=== PATIENT | female | born 1950 | race African-American/Black ===

== ENCOUNTER → 2016-06-19 | Outpatient (CLI) | payer MEDICARE, OTHER ==
--- NOTE | 2016-06-19 10:24 | XR ---
Cervical spine HISTORY: Pain 5 views of the cervical spine correlated to prior cervical spine dated 15 January 2007 Biapical pleural thickening is present. There may be a spinal curvature. Multilevel facet arthropathy changes are present. Foraminal encroachment is present at C4-5 due to uncovertebral joint hypertroph y facet arthropathy bilaterally. Spondylosis is present at C4-5, C5-6 and C6-7, there is associated l oss of disc height. Retrolisthesis grade 1 C2-3, C3-4 and C4-5, anterolisthesis grade 1 C7-T1. Bone m ineralization is reduced. Vertebral body height is maintained. The patient is edentulous. IMPRESSION: Degenerative disc disease and facet arthropathy. Osteopenia. Additional findings above.
== END | disposition home or self-care (01) ==
LOC: RADXRMAIN 08:43
PROVIDERS: ATTEND Physician Assistant
DX: M46.92 Unspecified inflammatory spondylopathy, cervical region (principal); M50.30 Other cervical disc degeneration, unspecified cervical region; M85.88 Other specified disorders of bone density and structure, other site
CPT/HCPCS: 72050

== ENCOUNTER → 2016-08-01 | Outpatient (CLI) | payer MEDICARE, OTHER | END | disposition home or self-care (01) | LOC: LABWHC1 17:11 | PROVIDERS: ATTEND Internal Medicine Clinical Cardiac Electrophysiology | DX: I10 Essential (primary) hypertension (principal) | CPT/HCPCS: 36415; 82533 ==

== ENCOUNTER 2017-07-27 14:01 | Emergency (ER) | payer MEDICARE ==
--- NOTE | 2017-07-27 15:19 | ED ---
General Adult HPI - General Chief complaint: Recheck/Abnormal Lab/Rx Stated complaint: Medication eval Time Seen by Provider: 07/27/17 14:44 Source: patient, RN notes reviewed, old records reviewed Mode of arrival: ambulatory Limitations: no limitations - History of Present Illness Initial comments: Chief complaint and history of present illness is a 66-year-old female who is coming emergency room because of complaining of some increased stress due to multiple family illnesses and deficits. The patient reports that her previous physician had her take Ativan 1 mg twice a day and Elavil at night. When she changed over to a new physician who took her off her medications including Ativan, Elavil and cholesterol medications. She's been off several medications for 2 months Ativan off for one month. This morning she did take one half of her sister's pill. Patient has an appointment to follow-up with another physician for reevaluation of medications in 2 weeks. She states she been off Ativan for one solid month. States she is depressed but not suicidal. - Related Data Previous Rx's Medication Instructions Recorded LORazepam [Ativan] 1 mg PO DAILY #10 tablet 07/27/17 Allergies Allergy/AdvReac Type Severity Reaction Status Date / Time clarithromycin [From Biaxin] Allergy Rash/Hives/ Verified 07/27/17 14:50 SOB Iodinated Contrast- Oral and Allergy Rash/Hives Verified 07/27/17 14:50 IV Dye [Iodinated Contrast Media - IV Dye] Penicillins Allergy Rash/Hives Verified 07/27/17 14:50 tetracycline [Tetracycline] Allergy Rash/Hives Verified 07/27/17 14:50 prochlorperazine AdvReac Dyspnea Verified 07/27/17 14:50 [From Compazine] Review of Systems ROS Statement: Those systems with pertinent positive or pertinent negative responses have been documented in the HPI. Review of systems. No headache or visual acuity changes no chest pain shortness of breath GI/ problems. She has chronic musculoskeletal discomfort from arthritis. Depressed over situations regarding his or her family's health and multiple tests including her own 's 2 years ago. Denies any injuries. Scheduled to see a new physician in several weeks. Also has not been able to obtain an appointment through [facility] or [facility]. First Appointment would be over 6 months away. All systems are reviewed. Past medical problems significant for COPD and she still smoke strongly encouraged to stop. Also hypothyroidism. Surgeries include cardiac ablation for SVT and has not had any difficulty since then. Partial hysterectomy, cholecystectomy, bilateral knee replacements for arthritis. Patient's ALLERGIES include clarithromycin, iodine oral and IV, penicillin, tetracycline and prochlorperazine patient continues to smoke 6 cigarettes per day encouraged to stop entirely. Denies alcohol use. ROS Other: All systems not noted in ROS Statement are negative. Past Medical History Past Medical History: COPD, Thyroid Disorder History of Any Multi-Drug Resistant Organisms: None Reported Past Surgical History: Cardiac Ablation, Cholecystectomy, Hysterectomy, Orthopedic Surgery Additional Past Surgical History / Comment(s): bilateral knee arthroscopy Past Psychological History: No Psychological Hx Reported Smoking Status: Current every day smoker Past Alcohol Use History: None Reported Past Drug Use History: None Reported General Exam - General Exam Comments Initial Comments: General: The patient is awake and alert, is depressed and upset that she's not been able take Ativan for over one month. Vital signs temperature 98.0 pulse 102 respiratory rate 20 pulse ox on percent room air blood pressure 112/71 Eye: Pupils are equal, round and reactive to light, extra-ocular movements are intact ; there is normal conjunctiva bilaterally. No signs of icterus. Patient has left eye cataract removal. Ears, nose, mouth and throat: There are moist mucous membranes and no oral lesions. Neck: The neck is supple, there is no tenderness. Cardiovascular: There is a regular rate and rhythm. No murmur, rub or gallop is appreciated. Respiratory: Lungs are clear to auscultation, respirations are non-labored, breath sounds are equal. No wheezes, stridor, rales, or rhonchi. Gastrointestinal: Soft, non-distended, non-tender abdomen without masses or organomegaly noted. There is no rebound or guarding present. No CVA tenderness. Bowel sounds are unremarkable. Back: There is no tenderness to palpation in the midline. There is no obvious deformity. No rashes noted. Musculoskeletal: Normal ROM, no tenderness, There is no pedal edema. There is no calf tenderness or swelling. Sensation intact. Pulses equal bilaterally 2+. Complains of chronic lower extremities discomfort. Has had bilateral knees replaced because of arthritis. Neurological: CN II-XII intact, There are no obvious motor or sensory deficits. Coordination appears grossly intact. Speech is normal. No focal or lateralizing findings. Skin: Skin is warm and dry and no rashes or lesions are noted. Psychiatric: Cooperative, flat affect, depressed, denies suicidal thoughts or intentions. Has been off Ativan for 1 month. Family problems and illnesses. Limitations: no limitations Course Vital Signs 07/27/17 14:03 Temperature 98.0 F Pulse Rate 102 H Respiratory 20 Rate Blood Pressure 112/71 O2 Sat by Pulse 100 Oximetry Medical Decision Making - Medical Decision Making Medical decision making; is a 66-year-old female here for complaint of being depressed because she can't get the Ativan which she normally took twice a day up to a month ago. She did get one half an Ativan from her sister this morning. The patient is not suicidal. Psychiatry will discuss her complaints. She does have an appointment to follow-up with a new family doctor soon but has not been able to get into any mental health programs. Patient was evaluated by the psychiatric nurse she spoke with the psychiatrist. Dr. Don suggests giving the patient Ativan 1 mg per day for the when necessary dose dispensed 10. Also suggest that she take melatonin 5 mg over-the -counter at night. And she is to be discharged to her daughter's home and she is receiving outpatient referrals for community mental health. - Lab Data Lab Results 07/27/17 Range/Units 15:45 Urine Opiates Screen Not Detected (NotDetected) Ur Oxycodone Screen Not Detected (NotDetected) Urine Methadone Screen Not Detected (NotDetected) Ur Propoxyphene Screen Not Detected (NotDetected) Ur Barbiturates Screen Not Detected (NotDetected) U Tricyclic Antidepress Not Detected (NotDetected) Ur Phencyclidine Scrn Not Detected (NotDetected) Ur Amphetamines Screen Not Detected (NotDetected) U Methamphetamines Scrn Not Detected (NotDetected) U Benzodiazepines Scrn Detected H (NotDetected) Urine Cocaine Screen Not Detected (NotDetected) U Marijuana (THC) Screen Not Detected (NotDetected) Disposition Clinical Impression: Depression Disposition: HOME SELF-CARE Condition: Fair Instructions: Depression (ED) Additional Instructions: Follow-up with your family doctor, follow up with outpatient referrals. Take Ativan 1 mg daily. By melatonin 5 mg [id number] to be taken at night to aid in sleep. Return emergency room as needed Prescriptions: LORazepam [Ativan] 1 mg PO DAILY #10 tablet Referrals: Bridgett Falk MD [Primary Care Provider] - 1-2 days Time of Disposition: 18:23
[2017-07-27 16:04] LABS: Amphetamine Screen,Urine Not Detected (NotDetected); Barbiturate Screen,Urine Not Detected (NotDetected); Benzodiazepines Screen,Urine Detected (NotDetected); Cocaine Screen,Urine Not Detected (NotDetected); Methadone Screen, Urine Not Detected (NotDetected); Opiate Screen,Urine Not Detected (NotDetected); Oxycodone Screen, Urine Not Detected (NotDetected); Phencyclidine Screen,Urine Not Detected (NotDetected); Tricyclic Antidepressant,Urine Not Detected (NotDetected); Urn Cannabinoid Scrn Not Detected (NotDetected)
[2017-07-27 18:35] VITALS: BP 117/82; PULSE 82; RESP 18; TEMP 98.2
== END 2017-07-27 18:35 | disposition home or self-care (01) ==
LOC: EC 14:01
DX: F32.9 Major depressive disorder, single episode, unspecified (principal); F43.9 Reaction to severe stress, unspecified; F17.200 Nicotine dependence, unspecified, uncomplicated; Z88.1 Allergy status to other antibiotic agents; Z88.0 Allergy status to penicillin; Z91.041 Radiographic dye allergy status; Z88.8 Allergy status to other drugs, medicaments and biological substances
CPT/HCPCS: 80306; 82075; 99284

== ENCOUNTER → 2018-08-19 | Outpatient (CLI) | payer MEDICARE | END | disposition home or self-care (01) | LOC: LABWHC1 12:37 | PROVIDERS: ATTEND Ophthalmology | DX: M31.6 Other giant cell arteritis (principal) | CPT/HCPCS: 36415; 85652; 86140 ==

== ENCOUNTER → 2022-08-08 | Outpatient (CLI) | payer MEDICARE ==
--- NOTE | 2022-08-08 11:06 | CTL ---
EXAMINATION TYPE: CT Low Dose Lung DATE OF EXAM ORDERED: 08/08/2022 HISTORY: . Lung cancer screening CT DLP: 59.[address] CTDI: 1.53 mGy Automated exposure control for dose reduction was used. SCREENING VISIT: COMPARISON: 08/04/2012 TECHNIQUE: Low dose computed tomography scan was performed through the chest at 1 mm thick sections a nd reconstructed images in multiple planes at 1 mm and [address] DIAGNOSTIC QUALITY: Satisfactory FINDINGS: There is mild diffuse emphysematous changes and there is areas of peripheral lung consolidation the r ight upper lobe with pleural-based thickening. There is a marked biapical pleural thickening with a f ocal area of calcifications seen involving the right lung apex. There is a subpleural nodule noted on axial image 81 measuring 6 mm. No additional sizable pulmonary nodules. No focal pneumonia or pleural effusion. No pneumothorax. There is central moderate bronchiectasis. Mild interlobular septal thickening can be associated with mild chronic interstitial lung disease. Within the liver there is a large hepatic lesion near the dome of the liver measuring 1.7 cm and 10 H ounsfield units. Post cholecystectomy changes are seen and there is a scoliosis of the spine. Tiny focus of hyperdensity involving the upper pole the left kidney likely represents a Bosniak 2 cla ssification hemorrhagic cyst but is too small to characterize measuring less than a centimeter and co uld be followed on a short-term basis. Heart size is normal. Aorta of normal caliber. There is mild atherosclerotic changes. No significant coronary artery calcification. No definite pathologic adenopathy by noncontrast technique. There is f luid attenuation along the right cardiophrenic angle measuring 3.2 cm similar to the prior study of 2 013 and therefore likely represents a spring water or pericardial cyst. IMPRESSION: 1. Diffuse mild COPD with moderate central bronchiectasis. 2. There is a 6 mm subpleural nodule right upper lobe. 3. There is peripheral consolidation within the right upper lobe axial image 91 which is felt to be m ost likely on the basis of chronic inflammatory or atelectatic changes. There is fairly extensive yohan pical pleural-based thickening mildly progressed from prior exam. 4. Subcentimeter hyperdensity within the upper pole left kidney is too small to characterize. Most li oswaldo represents a Bosniak classification 2 hemorrhagic or high proteinaceous cyst. 5. There is fluid attenuation along the right cardiophrenic angle measuring 3.2 cm similar to the miladis or study of 2013 and therefore likely represents a spring water or pericardial cyst. CT LUNG RAD AND CT CHEST RECOMMENDATION: Lung-Rad 3 Probably Benign: 6 month follow-up LDCT.
== END | disposition home or self-care (01) ==
LOC: RADCTMAIN 10:00
PROVIDERS: ATTEND Internal Medicine Critical Care Medicine
DX: Z12.2 Encounter for screening for malignant neoplasm of respiratory organs (principal); J44.9 Chronic obstructive pulmonary disease, unspecified; N28.89 Other specified disorders of kidney and ureter; F17.210 Nicotine dependence, cigarettes, uncomplicated; R91.1 Solitary pulmonary nodule
CPT/HCPCS: 71271

== ENCOUNTER → 2023-06-14 | Outpatient (CLI) | payer MEDICARE ==
[2023-06-14 09:15] LABS: African American GFR (CKD) >90 (>60 ml/min/1.73 sqM); Blood Urea Nitrogen 11 mg/dL (7-17); Non-African American GFR(CKD) >90 (>60 ml/min/1.73 sqM)
--- NOTE | 2023-06-14 10:22 | CT ---
EXAMINATION TYPE: CT chest w con DATE OF EXAM: 06/14/2023 COMPARISON: 08/04/2012, low-dose CT chest 08/08/2022 HISTORY: COPD CT DLP: 125.8 mGycm, Automated exposure control for dose reduction was used. CONTRAST: Performed injected with 100 mL of Isovue 300. TECHNIQUE: Axial images were obtained at 5 mm thick sections. Reconstructed images are reviewed on [employer] computer in the coronal plane. FINDINGS: Portion of the thyroid visualized is normal. Bilateral posterior apical scarring appears to be present. This was present previously and appears st able. There is a 0.6 cm nodule peripheral right upper lung field present previously. Series 4 image 19 There is some bronchiectasis evident in the upper lung waggoner no suspicious infiltrates or masses are otherwise evident. No enlarged mediastinal or hilar adenopathy is evident. The ascending aorta diameter at the level o f the main pulmonary artery is 2.4 cm. The main pulmonary artery diameter at the bifurcation is 1.[address] sections are obtained through the upper abdomen. There is a 2.7 cm cyst within the medial left lobe liver. IMPRESSION: 1. Bilateral apical scarring 2. Stable peripheral pleural-based nodule right upper lateral lung field. 3. Bronchiectasis upper lung waggoner.
== END | disposition home or self-care (01) ==
LOC: RADCTMAIN 08:28
PROVIDERS: ATTEND Internal Medicine Critical Care Medicine
DX: J47.9 Bronchiectasis, uncomplicated (principal); J94.8 Other specified pleural conditions; J98.4 Other disorders of lung; J44.9 Chronic obstructive pulmonary disease, unspecified
CPT/HCPCS: 82565; 84520; 71260; 36415; Q9967

== ENCOUNTER 2024-01-29 21:18 | Emergency (ER) | payer MEDICARE ==
[2024-01-29 22:07] VITALS: TEMP 97.8
[2024-01-29] MEDS: ASPIRIN 81 MG PO STA (22:36)
[2024-01-29] MEDS: HYDROcodone/APAP 7.5-325MG 1 EACH TAB PO ONE (22:38)
[2024-01-29] MEDS: KETOROLAC 15 MG/ML 1 ML VIAL IVP STA (23:10)
[2024-01-29] MEDS: SODIUM CHLORIDE 0.9% 500 ML 500 ML IV STA (23:11)
[2024-01-29 23:38] LABS: Basophils % (A) 0 %; Eosinophils # (A) 0.1 k/uL (0-0.7); Eosinophils % (A) 2 %; HCT 37.3 % (34.0-46.0); Lymphocytes # (A) 1.6 k/uL (1.0-4.8); Lymphocytes % (A) 26 %; MCH 30.3 pg (25.0-35.0); MCHC 32.2 g/dL (31.0-37.0); MCV 94.1 fL (80.0-100.0); Mean Platelet Volume 8.2; Monocytes # (A) 0.4 k/uL (0-1.0); Monocytes % (A) 6 %; Neutrophils # (A) 3.8 k/uL (1.3-7.7); Neutrophils % (A) 64 %; Platelet Count 226 k/uL (150-450); RBC 3.97 m/uL (3.80-5.40); RDW 13.5 % (11.5-15.5)
[2024-01-29 23:43] LABS: INR 0.9 (<1.2); Prothrombin Time 10.3 sec (10.0-12.5)
[2024-01-30 00:14] LABS: ALT 12 U/L (4-34); African American GFR (CKD) >90 (>60 ml/min/1.73 sqM); Albumin 4.2 g/dL (3.5-5.0); Anion Gap 5 mmol/L; Blood Urea Nitrogen 11 mg/dL (7-17); Calcium 9.4 mg/dL (8.4-10.2); Carbon Dioxide 25 mmol/L (22-30); Chloride 106 mmol/L (98-107); Glucose 93 mg/dL (74-99); Non-African American GFR(CKD) 86 (>60 ml/min/1.73 sqM); Sodium 136 mmol/L (137-145); Total Bilirubin 0.7 mg/dL (0.2-1.3); Total Protein 6.9 g/dL (6.3-8.2)
[2024-01-30 00:18] LABS: AST 31 U/L (14-36); Alkaline Phosphatase 63 U/L (38-126); Magnesium 1.9 mg/dL (1.6-2.3); Potassium 4.5 mmol/L (3.5-5.1)
--- NOTE | 2024-01-30 00:54 | ED ---
General Adult HPI - General Chief complaint: Extremity Injury, Upper Stated complaint: Chest Pain Time Seen by Provider: 01/29/24 22:14 Source: patient Mode of arrival: ambulatory Limitations: no limitations - History of Present Illness Initial comments: 73-year-old female presenting with chief complaint of left shoulder pain. Patient states that several years ago she did injure her shoulder and having coming in she does have a flareup of the pain. The pain does travel from the shoulder to the superiormost aspect of the chest. Pain is worse with range of motion and with palpation of the area. She had this pain yesterday and it persisted into today. Laying flat also makes the pain worse. She is having no difficulty breathing. No fevers or chills. No new injury. No numbness tingling or weakness. - Related Data Previous Rx's Medication Instructions Recorded LORazepam [Ativan] 1 mg PO DAILY #10 tablet 07/27/17 Allergies Allergy/AdvReac Type Severity Reaction Status Date / Time clarithromycin [From Biaxin] Allergy Rash/Hives/ Verified 01/29/24 22:01 SOB Iodinated Contrast Media Allergy Rash/Hives Verified 01/29/24 22:01 [Iodinated Contrast Media - IV Dye] Penicillins Allergy Rash/Hives Verified 01/29/24 22:01 tetracycline [Tetracycline] Allergy Rash/Hives Verified 01/29/24 22:01 prochlorperazine AdvReac Dyspnea Verified 01/29/24 22:01 [From Compazine] Review of Systems ROS Statement: Those systems with pertinent positive or pertinent negative responses have been documented in the HPI. ROS Other: All systems not noted in ROS Statement are negative. Past Medical History Past Medical History: COPD, Hyperlipidemia, Thyroid Disorder History of Any Multi-Drug Resistant Organisms: None Reported Past Surgical History: Cardiac Ablation, Cholecystectomy, Hysterectomy, Orthopedic Surgery Additional Past Surgical History / Comment(s): bilateral knee arthroscopy Past Psychological History: No Psychological Hx Reported Smoking Status: Current every day smoker Past Alcohol Use History: None Reported Past Drug Use History: None Reported General Exam Limitations: no limitations General appearance: alert, in no apparent distress Head exam: Present: atraumatic, normocephalic, normal inspection Eye exam: Present: normal appearance. Absent: EOMI Neck exam: Present: normal inspection. Absent: meningismus Respiratory exam: Present: normal lung sounds bilaterally, chest wall tenderness. Absent: respiratory distress, wheezes, rales, rhonchi, stridor Cardiovascular Exam: Present: regular rate, normal rhythm, normal heart sounds. Absent: systolic murmur, diastolic murmur, rubs, gallop, clicks Left Shoulder Exam: Present: normal inspection, full ROM, tenderness Neurological exam: Present: alert, oriented X3 Psychiatric exam: Present: normal affect, normal mood Skin exam: Present: warm, dry Course Vital Signs 01/29/24 01/30/24 22:01 02:29 Temperature 97.8 F Pulse Rate 103 H 82 Respiratory 19 18 Rate Blood Pressure 133/69 104/68 O2 Sat by Pulse 99 99 Oximetry Medical Decision Making - Medical Decision Making Was pt. sent in by a medical professional or institution ([facility], [employer], urgent care, hospital, or snf...) When possible be specific @ -No Did you speak to anyone other than the patient for history (EMS, parent, family, police, friend...)? What history was obtained from this source @ -No Did you review nursing and triage notes (agree or disagree)? Why? @ -I reviewed and agree with nursing and triage notes Were old charts reviewed (outside hosp., previous admission, EMS record, old EKG, old radiological studies, urgent care reports/EKG's, snf records)? Report findings @ -No old charts were reviewed Differential Diagnosis (chest pain, altered mental status, abdominal pain women, abdominal pain men, vaginal bleeding, weakness, fever, dyspnea, syncope, h eadache, dizziness, GI bleed, back pain, seizure, CVA, palpatations, mental health, musculoskeletal)? @ -Differential Musculoskeletal Muscular strain, contusion, ligament sprain, fracture, arthritis, septic arthritis, bursitis, cellulitis, muscle spasm, nerve compression, DVT, arterial occlusion, herpes zoster, electrolyte abnormality, tumor.... This is not meant to be in all inclusive list EKG interpreted by me (3pts min.). @ -EKG shows sinus rhythm ventricular rate 82. IA interval 167. QRS 80. QT 365. QTc 404. Normal axis. X-rays interpreted by me (1pt min.). @ -Chest x-ray shows no acute process. shoulder x-ray shows no acute fracture or subluxation CT interpreted by me (1pt min.). @ -None done U/S interpreted by me (1pt. min.). @ -None done What testing was considered but not performed or refused? (CT, X-rays, U/S, labs)? Why? @ -None What meds were considered but not given or refused? Why? @ -None Did you discuss the management of the patient with other professionals (professionals i.e. DrCarol, PA, [employer], lab, RT, psych nurse, social economist, linux admin, teacher, chief security officer, pillowcase maker)? Give summary @ -No Was smoking cessation discussed for >3mins.? @ -No Was critical care preformed (if so, how long)? @ -No Were there social determinants of health that impacted care today? How? (Homelessness, low income, unemployed, alcoholism, drug addiction, transportation, low edu. Level, literacy, decrease access to med. care, penitentiary, rehab)? @ -No Was there de-escalation of care discussed even if they declined (Discuss DNR or withdrawal of care, Hospice)? DNR status @ -No What co-morbidities impacted this encounter? (DM, HTN, Smoking, COPD, CAD, Cancer, CVA, ARF, Chemo, Hep., AIDS, mental health diagnosis, sleep apnea, morbid obesity)? @ -None Was patient admitted / discharged? Hospital course, mention meds given and route, prescriptions, significant lab abnormalities, going to OR and other pertinent info. @ -73-year-old female presenting with chief complaint of left shoulder pain. There is some radiation to the superiormost aspect of the chest. Her pain is reproducible on palpation and worse with range of motion. History and physical examination are conducted. Lab work shows no leukocytosis or anemia. Negative troponin. Negative x-rays of the chest and shoulder. EKG shows sinus rhythm with no ischemic changes. Pain is likely musculoskeletal in nature. Patient is requesting discharge home. She reports improvement after medication given here. Educated on today's findings and discharged. Follow-up with PCP. Report back to ER with any new or worsening symptoms. Discussed return parameters and answered all questions. Patient conveyed verbal understanding and agreed to the plan. I discussed this case in detail with my attending Dr. García Undiagnosed new problem with uncertain prognosis? @ -No Drug Therapy requiring intensive monitoring for toxicity (Heparin, Nitro, Insulin, Cardizem)? @ -No Were any procedures done? @ -No Diagnosis/symptom? @ -Shoulder pain Acute, or Chronic, or Acute on Chronic? @ -Acute Uncomplicated (without systemic symptoms) or Complicated (systemic symptoms)? @ -Uncomplicated Side effects of treatment? @ -No Exacerbation, Progression, or Severe Exacerbation? @ -No Poses a threat to life or bodily function? How? (Chest pain, [place], [place], pneumonia, PE, COPD, DKA, ARF, appy, cholecystitis, CVA, Diverticulitis, Homicidal, Suicidal, threat to staff... and all critical care pts) @ -Unlikely - Lab Data Result diagrams: 01/29/24 23:04 01/29/24 23:04 Lab Results 01/29/24 01/29/24 01/29/24 Range/Units 23:04 23:04 23:04 WBC 6.0 (3.8-10.6) k/uL RBC 3.97 (3.80-5.40) m/uL Hgb 12.0 (11.4-16.0) gm/dL Hct 37.3 (34.0-46.0) % MCV 94.1 (80.0-100.0) fL MCH 30.3 (25.0-35.0) pg MCHC 32.2 (31.0-37.0) g/dL RDW 13.5 (11.5-15.5) % Plt Count 226 (150-450) k/uL MPV 8.2 Neutrophils % 64 % Lymphocytes % 26 % Monocytes % 6 % Eosinophils % 2 % Basophils % 0 % Neutrophils # 3.8 (1.3-7.7) k/uL Lymphocytes # 1.6 (1.0-4.8) k/uL Monocytes # 0.4 (0-1.0) k/uL Eosinophils # 0.1 (0-0.7) k/uL Basophils # 0.0 (0-0.2) k/uL PT 10.3 (10.0-12.5) sec INR 0.9 (<1.2) APTT 31.0 H (22.0-30.0) sec Sodium 136 L (137-145) mmol/L Potassium 4.5 (3.5-5.1) mmol/L Chloride 106 (98-107) mmol/L Carbon Dioxide 25 (22-30) mmol/L Anion Gap 5 mmol/L BUN 11 (7-17) mg/dL Creatinine 0.71 (0.52-1.04) mg/dL Est GFR (CKD-EPI)AfAm >90 (>60 ml/min/1.73 sqM) Est GFR (CKD-EPI)NonAf 86 (>60 ml/min/1.73 sqM) Glucose 93 (74-99) mg/dL Calcium 9.4 (8.4-10.2) mg/dL Magnesium 1.9 (1.6-2.3) mg/dL Total Bilirubin 0.7 (0.2-1.3) mg/dL AST 31 (14-36) U/L ALT 12 (4-34) U/L Alkaline Phosphatase 63 (38-126) U/L Troponin I (0.000-0.034) ng/mL Total Protein 6.9 (6.3-8.2) g/dL Albumin 4.2 (3.5-5.0) g/dL 01/29/24 Range/Units 23:04 WBC (3.8-10.6) k/uL RBC (3.80-5.40) m/uL Hgb (11.4-16.0) gm/dL Hct (34.0-46.0) % MCV (80.0-100.0) fL MCH (25.0-35.0) pg MCHC (31.0-37.0) g/dL RDW (11.5-15.5) % Plt Count (150-450) k/uL MPV Neutrophils % % Lymphocytes % % Monocytes % % Eosinophils % % Basophils % % Neutrophils # (1.3-7.7) k/uL Lymphocytes # (1.0-4.8) k/uL Monocytes # (0-1.0) k/uL Eosinophils # (0-0.7) k/uL Basophils # (0-0.2) k/uL PT (10.0-12.5) sec INR (<1.2) APTT (22.0-30.0) sec Sodium (137-145) mmol/L Potassium (3.5-5.1) mmol/L Chloride (98-107) mmol/L Carbon Dioxide (22-30) mmol/L Anion Gap mmol/L BUN (7-17) mg/dL Creatinine (0.52-1.04) mg/dL Est GFR (CKD-EPI)AfAm (>60 ml/min/1.73 sqM) Est GFR (CKD-EPI)NonAf (>60 ml/min/1.73 sqM) Glucose (74-99) mg/dL Calcium (8.4-10.2) mg/dL Magnesium (1.6-2.3) mg/dL Total Bilirubin (0.2-1.3) mg/dL AST (14-36) U/L ALT (4-34) U/L Alkaline Phosphatase (38-126) U/L Troponin I <0.012 (0.000-0.034) ng/mL Total Protein (6.3-8.2) g/dL Albumin (3.5-5.0) g/dL Disposition Clinical Impression: Shoulder pain Disposition: HOME SELF-CARE Condition: Good Instructions (If sedation given, give patient instructions): Shoulder Pain (ED) Additional Instructions: Follow-up with your PCP. Report back to ER with any new or worsening symptoms. Take Motrin and Tylenol as needed for pain control. Is patient prescribed a controlled substance at d/c from ED?: No Referrals: Bridgett Falk MD [Primary Care Provider] - 1-2 days Time of Disposition: 02:00
--- NOTE | 2024-01-30 01:07 | XR ---
EXAM: XR Chest, 2 Views CLINICAL HISTORY: ITS.REASON XR Reason: Chest Pain TECHNIQUE: Frontal and lateral views of the chest. COMPARISON: No relevant prior studies available. FINDINGS: Lungs: Unremarkable. No consolidation. Pleural space: Unremarkable. No pneumothorax. Heart: Unremarkable. No cardiomegaly. Mediastinum: Unremarkable. Normal mediastinal contour. Bones/joints: Unremarkable. No acute fracture. IMPRESSION: Normal chest x-rays.
--- NOTE | 2024-01-30 01:38 | XR ---
EXAM: XR Left Shoulder Complete, 2 or More Views CLINICAL HISTORY: ITS.REASON XR Reason: pain TECHNIQUE: Two or more views of the left shoulder. COMPARISON: No relevant prior studies available. FINDINGS: Bones/joints: Diffuse osseous demineralization. No acute fracture or subluxation. Soft tissues: Unremarkable. IMPRESSION: No acute fracture or subluxation.
[2024-01-30] MEDS: ACET/COD 300 MG/30 MG STARTER PACK 6 TAB BTL PO STA (02:28)
[2024-01-30] MEDS: LIDOCAINE 4% PATCH TOPICAL ONE (02:28)
[2024-01-30 02:30] VITALS: BP 104/68; PULSE 82; RESP 18
== END 2024-01-30 02:20 | disposition home or self-care (01) ==
LOC: EC 21:18
CPT/HCPCS: 36415; 71046; 80053; 83735; 84484; 85025; 85610; 85730; 93005; 96361; 96374; 99285

== ENCOUNTER → 2024-04-10 | Outpatient (CLI) | payer MEDICARE ==
--- NOTE | 2024-04-10 14:01 | MM ---
Reason for Exam: Screening (asymptomatic). Last screening mammogram was performed 12 month(s) ago. Patient History: Menarche at age 14. First Full-Term at age 22. Left ovary removed at age 47. Hysterectomy at age 33. Postmenopausal. Hormonal Contraceptives for 15 years from age 18 until age 33. Benign Excisional Biopsy on the left side. Benign Excisional Biopsy on the left side. Maternal cousin had breast cancer, age 23. Maternal aunt had breast cancer, age 88. Risk Values: Chrissy 5 year model risk: 1.9%. NCI Lifetime model risk: 5.0%. Prior Study Comparison: 10/27/2014 Bilateral Screening Mammogram, [facility]. 03/15/2016 Bilateral Screening Mammogram, [facility]. 04/24/2017 Bilateral Screening Mammogram, [facility]. Tissue Density: The breasts are heterogeneously dense, which may obscure small masses. Findings: Analyzed By CAD. Right breast: There is no suspicious group of microcalcifications or new suspicious mass. Left breast: There is no suspicious group of microcalcifications or new suspicious mass. Overall Assessment: Negative, BI-RAD 1 Management: Screening Mammogram of both breasts in [address] [facility] will attempt to contact patient to return for supplemental views and ultrasound if indicated. Patient should continue monthly self-breast exams. A clinical breast exam by your physician is recommended on an annual basis. This exam should not preclude additional follow-up of suspicious palpable abnormalities. Note on Chrissy scores and lifetime risk: 1. A Chrissy score greater than 3% is considered moderate risk. If this is the case, consider specialist referral to assess eligibility for a risk reducing agent. 2. If overall lifetime risk for the development of breast cancer is 20% or higher, the patient may qualify for future screening with alternating mammogram and breast MRI. [facility], , 04/10/2024 1:58 PM. Electronically signed and approved by: James Omalley DO
== END | disposition home or self-care (01) ==
LOC: RADMAMWWP 11:25
PROVIDERS: ATTEND Family Medicine
DX: Z12.31 Encounter for screening mammogram for malignant neoplasm of breast (principal); Z78.0 Asymptomatic menopausal state; Z80.3 Family history of malignant neoplasm of breast; Z90.722 Acquired absence of ovaries, bilateral; R92.333 Mammographic heterogeneous density, bilateral breasts
CPT/HCPCS: 77063; 77067